=== PATIENT | male | born 1995 | race Caucasian/White ===

== ENCOUNTER 2017-07-28 00:27 | Emergency (ER) | payer BC, OTHER ==
[~2017-07-28 00:27] MED LIST: DIPH25CA65 PO; EPP3/2 IM; PRD20 PO
--- NOTE | 2017-07-28 00:36 | EMERGENCY ROOM VISIT NOTE ---
History Report prepared by Corneliusibe: Lisa Durán Under the Supervision of: Dr. Rosalva Patton D.O. First contact with patient: 00:27 Stated Complaint: ALCOHOL History of Present Illness The patient is a 22 year old male who presents to the Emergency Room with complaints of a episode of a alcohol overdose occurring just prior to arrival. Per EMS, the patient was found sitting on someone's porch. He denies any falls. The patient denies any health problems. The patient is a [employer] student. History limited secondary to intoxication. Source of History: patient History Limited By: intoxication Onset: just prior to arrival Position: other (global) Quality: other (alcohol overdose) Review of Systems ROS limited secondary to intoxication. 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 Social History Alcohol Use: occasionally Marital Status: single Occupation Status: [employer] student Current/Historical Medications Scheduled Epinephrine (Epipen), 0.3 MG IM UD Allergies Coded Allergies: Peanut (Verified Allergy, Severe, ANAPHYLAXIS, 07/21/16) Shellfish (Verified Allergy, Unknown, UNKNOWN, 07/21/16) Physical Exam Vital Signs Date Time Temp Pulse Resp B/P (MAP) Pulse Ox O2 Delivery O2 Flow Rate FiO2 07/28/17 06:22 76 20 100 07/28/17 06:07 101 15 100 07/28/17 05:52 74 20 99 07/28/17 05:37 80 98 07/28/17 05:22 74 17 96 07/28/17 05:07 72 16 97 07/28/17 04:52 74 17 96 07/28/17 04:51 73 07/28/17 04:37 75 16 97 07/28/17 04:22 65 16 98 07/28/17 04:07 94 18 99 07/28/17 04:03 111/74 07/28/17 04:02 89 18 111/74 99 07/28/17 03:58 82/39 07/28/17 03:57 79/39 07/28/17 03:52 73 18 97 07/28/17 03:37 74 18 97 07/28/17 03:22 77 19 97 07/28/17 03:07 79 19 97 07/28/17 02:52 82 18 97 07/28/17 02:37 75 18 98 07/28/17 02:32 93 22 07/28/17 02:21 101/57 07/28/17 02:20 85 07/28/17 02:17 103 97 07/28/17 02:02 85 22 95 07/28/17 01:47 84 21 93 07/28/17 01:32 83 22 92 07/28/17 01:17 88 23 07/28/17 01:12 77 22 96 Room Air 07/28/17 00:40 93 07/28/17 00:38 37.0 77 21 126/81 96 Room Air 07/28/17 00:38 126/81 Physical Exam HEENT: Head - normocephalic and atraumatic Pupils are 8mm and sluggishly reactive to light. Extraocular eye muscles are intact, and sclera are anicteric. Nose - moist nasal mucosa without discharge. Mouth - moist buccal mucosa. Oropharynx is nonerythematous and there is no tonsillar exudate or edema noted. Neck: Supple; no JVD, nuchal rigidity, cervical lymphadenopathy. Heart: Regular rate and rhythm. There is a normal S1 and S2 with no murmurs, clicks, or gallops appreciated. Lungs: Clear to auscultation bilaterally with no wheezes, rales, or rhonchi. Abdomen: Soft, completely nontender, nondistended, with good bowel sounds. There are no palpable pulsatile masses or hepatosplenomegaly. There is no guarding, rigidity, or rebound noted. Extremities: No evidence of cyanosis, clubbing, or edema. There are easily palpable peripheral pulses. Skin: Cold to touch with good turgor and no rashes. Medical Decision & Procedures Laboratory Results 07/28/17 00:42 Test 07/28/17 00:42 Anion Gap 8.0 mmol/L (3-11) Estimated GFR () 142.3 Estimated GFR (Non- 122.8 BUN/Creatinine Ratio 15.8 (10-20) Calcium Level 8.9 mg/dl (8.5-10.1) Ethyl Alcohol mg/dL 325.7 mg/dl (0-3) Laboratory results per my review. ECG Indication: toxicologic Rate (beats per minute): 83 Rhythm: normal sinus Findings: other (WPW) Comparison ECG Date: 07/21/16 Change: no significant change ED Course 0027: Past medical records reviewed. The patient was evaluated in room A9A. A complete history and physical exam was performed. The patient was placed in the prone position to avoid aspiration. He was observed on the meter technician and pulse oximeter. Laboratory studies were drawn as above. 0200: The patient is sleeping and is hemodynamically stable. 0514: The patient is still sleeping and his vitals are stable. 0600: The patient woke up easily but doesn't have a phone to get a hold of sober friends. I asked if he was aware that he had WPW. He states he was not aware of that acronym but knows he has a electrical abnormality and thinks WPW sounds familiar. I urged him to follow up with S, and he said he will if I think it is necessary. 0900: Upon reevaluation, the patient is resting. I discussed findings and results with the patient. He verbalized agreement of the treatment plan. The patient was discharged home. Medical Decision The patient is a 22 year old male who presents to the Emergency Room with complaints of an episode of a alcohol overdose occurring just prior to arrival. Differential diagnosis includes: alcohol intoxication, drug overdose, hypothermia, head injury, hypoglycemia. Labs results show alcohol 325, normal renal function and normal glucose. The patient presents to the emergency department after consuming too much alcohol. He was observed on a meter technician and noted to have a wide QRS complex. 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 I did compare this to a previous EKG and this was unchanged. The patient slept for quite some time he remained hemodynamically stable. I woke the patient up and he seemed to be feeling somewhat better but had no phone to contact a sober friend for transport from here. The patient will remain here until he is more completely sober and then he can be discharged by taxi. I've asked the patient to follow-up with [facility] with regards to the WPW. He again told me that he did not wish to do this but stated that if I felt it was important he would do it. I've encouraged the patient to avoid such excessive alcohol use in the future. Medication Reconcilliation Current Medication List: was personally reviewed by me Blood Pressure Screening Patient's blood pressure: Normal blood pressure Impression Primary Impression: Alcohol overdose Scribe Attestation The scribe's documentation has been prepared under my direction and personally reviewed by me in its entirety. I confirm that the note above accurately reflects all work, treatment, procedures, and medical decision making performed by me. Departure Information Dispostion Home / Self-Care Forms HOME CARE DOCUMENTATION FORM, IMPORTANT VISIT INFORMATION Patient Instructions ED Overdose Alcohol, [facility]: [employer] Students and Alcohol Related Visits, [facility] Additional Instructions Avoid such excessive alcohol use in the future Rest. take plenty of clear liquids Use tylenol for headache Problem Qualifiers Primary Impression: Alcohol overdose Encounter type: initial encounter Injury intent: accidental or unintentional Qualified Codes: T51.91XA - Toxic effect of unspecified alcohol , accidental (unintentional), initial encounter
[2017-07-28 00:38] VITALS: TEMP 37
[2017-07-28] MEDS ORDERED: EPP3/2 IM (01:01)
[2017-07-28 01:15] LABS: BLOOD UREA NITROGEN 14 mg/dl (7-18); BUN/CREATININE RATIO 15.8 (10-20); CALCIUM 8.9 mg/dl (8.5-10.1); CARBON DIOXIDE 25 mmol/L (21-32); CHLORIDE 110 mmol/L (98-107); CREATININE 0.85 mg/dl (0.60-1.40); GLUCOSE 99 mg/dl (70-99); POTASSIUM 4.2 mmol/L (3.5-5.1); SODIUM 142 mmol/L (136-145)
[2017-07-28 08:16] VITALS: BP 117/62; PULSE 102; O2SAT 96
== END 2017-07-28 08:45 | disposition home or self-care (01) ==
LOC: EDBD 00:27 → C.EDA 00:29
DX: T51.0X1A Toxic effect of ethanol, accidental (unintentional), initial encounter (principal)